=== PATIENT | female | born 1970 | race Caucasian/White ===

== ENCOUNTER 2019-10-16 10:28 | Outpatient (CLI) | payer BC, OTHER ==
[2019-10-17 14:48] LABS: SARS-CoV-2 MS2 Positive; SARS-CoV-2 N Gene Negative; SARS-CoV-2 S Gene Negative; SARS-CoV-2 by NAA Not Detected (NotDetected); SARS-CoV-2 orf1ab Negative
== END 2019-10-16 10:29 | disposition home or self-care (01) ==
LOC: LABBT 10:28
PROVIDERS: ATTEND Orthopaedic Surgery
DX: Z01.812 Encounter for preprocedural laboratory examination (principal); Z11.59 Encounter for screening for other viral diseases; S92.302A Fracture of unspecified metatarsal bone(s), left foot, initial encounter for closed fracture
CPT/HCPCS: 87635; U0003

== ENCOUNTER → 2019-10-20 | Day surgery (SDC) | payer BC ==
[2019-10-16 18:09] VITALS: BMI 24.7
[~2019-10-20] MED LIST: Acetaminophen 325 MG TAB PO PRN; Dexamethasone 20 MG/5 ML VIAL ONE; Fentanyl 100 MCG/2 ML VIAL IV PRN; Fentanyl 100 MCG/2 ML VIAL ONE; HYDROcodone/Acetaminophen 10/325 mg Tablet PO PRN; Ketorolac Tromethamine 30 MG/ML VIAL IVP SCH; Ketorolac Tromethamine 30 MG/ML VIAL ONE; Lidocaine 1% PF 5 ML VIAL ONE; Midazolam HCl 2 mg/2 ml Vial ONE; Ondansetron PF 4 MG/2 ML Vial IVP PRN; PROPOFOL 200 MG/20 ML VIAL ONE; Promethazine HCl 25 MG/ML VIAL IM PRN; Propofol 500 MG/50 ML VIAL ONE; Ropivacaine 0.2% 550 ML 550 ML NERVE BLCK SCH; Ropivacaine 0.2% HCl/PF (40 MG/20 ML VIAL) ONE; Ropivacaine 0.5% HCl/PF (150 MG/30 ML VIAL) ONE; Zolpidem Tartrate 5 MG TAB PO PRN; traMADol HCl 50 MG TAB PO PRN
--- NOTE | 2019-10-20 16:50 | OP ---
DATE OF PROCEDURE: 10/20/2019 PREOPERATIVE DIAGNOSIS: Left metatarsal neck fractures, 2 through 4. POSTOPERATIVE DIAGNOSIS: Left metatarsal neck fractures, 2 through 4. PROCEDURES PERFORMED: 1. Open reduction and internal fixation of left second metatarsal neck fracture. 2. Open reduction and internal fixation of left third metatarsal neck fracture. 3. Closed treatment of left fourth metatarsal neck fracture. ANESTHESIA: General. FOURDRINIER OPERATOR: Carolyne Logan PA-C TOURNIQUET TIME: 80 minutes at 300 mmHg. IMPLANTS: Synthes 2.4/2.7 variable angle LCP T-fusion plates x2. COMPLICATIONS: None. DRAINS: None. SPECIMEN: None. OUTCOME: Satisfactory. INDICATIONS: Mila is a pleasant 49-year-old lady status post injury to left foot with fractures of 2 through 4 metatarsal necks. Originally, these fractures were minimally displaced and we opted to proceed with nonsurgical management. However, unfortunately, we have had some late drift of the fractures laterally. After discussion with the patient including risks and benefits, we have now decided to proceed with open reduction and internal fixation to try and restore more normal anatomy and hopefully improve outcome. Informed consent has been obtained. I believe all questions have been answered. DESCRIPTION OF PROCEDURE: The patient was brought to the operating room and a time-out performed followed by induction of general anesthesia. Next, the patient was positioned supine and a sterile prep and drape was performed of the left lower extremity. Next, the limb was exsanguinated with Esmarch bandage, tourniquet inflated to 300 mmHg. Next, under C-arm localization, an incision was made between the 2nd and 3rd metatarsal necks and distal shaft. Once the incision was made, dissection was carried down bluntly identifying the extensor tendons of both the 2nd and 3rd toes. Next, the extensor tendon of the 2nd toe was reflected medially exposing the dorsal aspect of the metatarsal shaft and neck region. The fracture callus was debrided using combination of rongeur and small periosteal elevator. Once the fracture was mobilized, it was reduced and held in place with a bone tenaculum. Next, a 2.4/2.7 mm variable angle LCP fusion plate was chosen to stabilize this fracture. This was applied with the horizontal portion near the metatarsal head region in order to get two screw fixation of this distal fragment. A total of four screws were used, two proximal and two distal to the fracture. This resulted in latter day of length and correction of the angular deformity. Next, a 2nd plate was applied to the third metatarsal shaft in identical fashion to the 2nd, again bring it out to length in correcting the angular deformity. The 4th metatarsal fracture was a very long oblique fracture with minimal shortening and minimal angulation and as such was opted to treat this nonsurgically. As such, following final AP, oblique, and lateral C-arm images, which were saved, wound closure performed with 2-0 Vicryl and nylon for the skin. Xeroform gauze, Webril, and fiberglass splint was applied to the ankle and then the patient was transferred to recovery room in stable condition. There were no complications. The patient tolerated the procedure well. Job ID: [id number]
--- NOTE | 2019-10-20 17:33 | RAD ---
LEFT FOOT THREE VIEWS: 10/20/19 FINDINGS/IMPRESSION: Six fluoroscopic intraoperative images of the left foot demonstrate interval reduction and internal f ixation of the fractures of the second and third metatarsals noted on 09/24/19 with placement of plates and screws. Fracture of the shaft of the fourth metatarsal is unchanged. POS: OFF
== END ==
LOC: SDC 10:22
PROVIDERS: ATTEND Orthopaedic Surgery
PROC: 0QSP04Z Reposition Left Metatarsal with Internal Fixation Device, Open Approach (ICD-10-PCS; principal; 2019-10-20)
PROC: 0QSPXZZ Reposition Left Metatarsal, External Approach (ICD-10-PCS; principal; 2019-10-20)
DX: S92.322A Displaced fracture of second metatarsal bone, left foot, initial encounter for closed fracture (principal); S92.332A Displaced fracture of third metatarsal bone, left foot, initial encounter for closed fracture; S92.342A Displaced fracture of fourth metatarsal bone, left foot, initial encounter for closed fracture; Z79.899 Other long term (current) drug therapy
CPT/HCPCS: 76000; A4306; C1713; J0690; J1100; J1885; J2250; J2704; J2795; J3010

== ENCOUNTER 2020-08-31 15:34 | Outpatient (CLI) | payer BC ==
[2020-08-31 23:21] LABS: SARS-CoV-2 NAA Rapid Test Not Detected (NotDetected)
== END 2020-08-31 15:35 | disposition home or self-care (01) ==
LOC: LABBT 15:34
PROVIDERS: ATTEND Orthopaedic Surgery
DX: Z01.812 Encounter for preprocedural laboratory examination (principal); Z20.822 Contact with and (suspected) exposure to COVID-19
CPT/HCPCS: U0002; U0005

== ENCOUNTER 2020-09-01 12:25 | Day surgery (SDC) | payer BC ==
[2020-08-31 11:55] VITALS: BMI 25.8
[2020-09-01] MEDS ORDERED: Lidocaine 1% (PF) 30 ML VIAL ONE (13:30)
[2020-09-01] MEDS ORDERED: Midazolam HCl 2 mg/2 ml Vial ONE (13:34)
[2020-09-01] MEDS ORDERED: Fentanyl 100 MCG/2 ML VIAL ONE (13:37)
[2020-09-01] MEDS ORDERED: Ondansetron PF 4 MG/2 ML Vial ONE (13:50)
[2020-09-01] MEDS ORDERED: Ketorolac Tromethamine 30 MG/ML VIAL ONE ×2 (13:50→14:58)
[2020-09-01] MEDS ORDERED: Lidocaine 1% PF 5 ML VIAL ONE (13:50)
[2020-09-01] MEDS ORDERED: PROPOFOL 200 MG/20 ML VIAL ONE (13:50)
[2020-09-01] MEDS ORDERED: Bupivacaine PF 0.5% 30 ML VIAL ONE (14:03)
[2020-09-01] MEDS ORDERED: PROPOFOL 20 ML ONE ×3 (14:04→14:43)
== END 2020-09-01 16:01 | disposition home or self-care (01) ==
LOC: SDC 12:25
PROVIDERS: ATTEND Orthopaedic Surgery
PROC: 0QPN04Z Removal of Internal Fixation Device from Right Metatarsal, Open Approach (ICD-10-PCS; principal; 2020-09-01)
DX: T84.84XA Pain due to internal orthopedic prosthetic devices, implants and grafts, initial encounter (principal); E03.9 Hypothyroidism, unspecified; Z79.899 Other long term (current) drug therapy; Z91.018 Allergy to other foods; Z91.048 Other nonmedicinal substance allergy status
CPT/HCPCS: 76000; J0690; J1885; J2001; J2250; J2405; J2704; J3010; S0020

== ENCOUNTER 2024-04-16 14:03 | Outpatient (CLI) | payer OTHER | END 2024-04-16 14:04 | disposition home or self-care (01) | LOC: BICMAMMO 14:03 | PROVIDERS: ATTEND Obstetrics & Gynecology | DX: R92.8 Other abnormal and inconclusive findings on diagnostic imaging of breast (principal) | CPT/HCPCS: 77066; G0279 ==